=== PATIENT | female | born 1965 | race Caucasian/White ===

== ENCOUNTER 2018-03-29 19:47 | Emergency (ER) | payer OTHER ==
[~2018-03-29] VITALS: Ht 149.9 cm; Wt 63.5 kg
[2018-03-29] MEDS ORDERED: ARAVA10 MG (20:47)
[2018-03-29] MEDS ORDERED: ORENCIA50 MG/0.4 (20:48)
== END 2018-03-29 23:03 | disposition home or self-care (01) ==
LOC: ER 19:47
DX: S52.571A Other intraarticular fracture of lower end of right radius, initial encounter for closed fracture (principal); W18.39XA Other fall on same level, initial encounter; Y93.89 Activity, other specified; Y92.481 Parking lot as the place of occurrence of the external cause; Y99.8 Other external cause status

== ENCOUNTER 2018-03-30 11:58 | Outpatient (CLI) | payer OTHER ==
[~2018-03-30 11:58] MED LIST: ARAVA10 MG; ORENCIA50 MG/0.4
== END 2018-03-30 12:07 | disposition home or self-care (01) ==
LOC: RAD 501 11:58
DX: S52.531A Colles' fracture of right radius, initial encounter for closed fracture (principal)

== ENCOUNTER → 2018-03-30 13:28 | Outpatient (CLI) | payer OTHER | END | disposition home or self-care (01) | LOC: LAB 13:28 | DX: D64.89 Other specified anemias (principal); D68.8 Other specified coagulation defects; N39.0 Urinary tract infection, site not specified; E55.9 Vitamin D deficiency, unspecified; M85.9 Disorder of bone density and structure, unspecified; Z76.89 Persons encountering health services in other specified circumstances; I49.8 Other specified cardiac arrhythmias; E88.89 Other specified metabolic disorders; B95.62 Methicillin resistant Staphylococcus aureus infection as the cause of diseases classified elsewhere ==

== ENCOUNTER 2018-03-30 15:14 | Outpatient (CLI) | payer OTHER | END 2018-03-30 15:27 | disposition home or self-care (01) | LOC: TOM 15:14 | DX: S52.531A Colles' fracture of right radius, initial encounter for closed fracture (principal) ==

== ENCOUNTER 2018-04-04 06:00 | Day surgery (SDC) | payer OTHER | END 2018-04-04 14:45 | disposition home or self-care (01) | LOC: CIR.AMB 06:00 | DX: S52.531A Colles' fracture of right radius, initial encounter for closed fracture (principal); S53.21XA Traumatic rupture of right radial collateral ligament, initial encounter ==

== ENCOUNTER 2018-08-03 10:38 | Outpatient (CLI) | payer OTHER | END 2018-08-03 10:46 | disposition home or self-care (01) | LOC: RAD 501 10:38 | DX: M25.531 Pain in right wrist (principal) ==

== ENCOUNTER 2019-04-10 09:15 | Outpatient (CLI) | payer OTHER | END 2019-04-10 09:20 | disposition home or self-care (01) | LOC: LAB 09:15 | DX: D64.89 Other specified anemias (principal); E88.89 Other specified metabolic disorders; D68.8 Other specified coagulation defects; N39.0 Urinary tract infection, site not specified; Z22.322 Carrier or suspected carrier of Methicillin resistant Staphylococcus aureus; T84.84XA Pain due to internal orthopedic prosthetic devices, implants and grafts, initial encounter; M25.562 Pain in left knee; Z76.89 Persons encountering health services in other specified circumstances; I49.8 Other specified cardiac arrhythmias ==

== ENCOUNTER 2019-04-14 09:00 | Day surgery (SDC) | payer OTHER | END 2019-04-14 16:50 | disposition home or self-care (01) | LOC: CIR.AMB 09:00 | DX: T84.84XA Pain due to internal orthopedic prosthetic devices, implants and grafts, initial encounter (principal); M65.841 Other synovitis and tenosynovitis, right hand ==

== ENCOUNTER 2019-08-08 11:42 | Outpatient (CLI) | payer OTHER | END 2019-08-08 11:52 | disposition home or self-care (01) | LOC: RAD 11:42 | DX: T84.84XA Pain due to internal orthopedic prosthetic devices, implants and grafts, initial encounter (principal) ==